=== PATIENT | female | born 1980 | race Caucasian/White ===

== ENCOUNTER 2019-01-11 18:33 | Emergency (ER) | payer BC ==
[~2019-01-11] VITALS: Ht 157.5 cm; Wt 93.3 kg
--- NOTE | 2019-01-11 18:41 | ED.ADGEN ---
Past History Past Medical History: Anemia, Asthma Past Medical History MRSA Adult General Chief Complaint Chief Complaint ".. I got this lesion under my Lt. arm..." HPI HPI Patient is a 38 year old female who presents with above hx and complaints of cellulitis and abscess under her left axillary area. Patient does shave her arms and uses antidepressant deodorants. She has approximately 1 x 2 cm abscess with surrounding cellulitis. Patient has had previous history of MRSA. History immunosuppression. Does have a history of asthma. No recent travel or specific ill contacts. Review of Systems Review of Systems Constitutional: Denies fever or chills [] Eyes: Denies change in visual acuity, redness, or eye pain [] HENT: Denies nasal congestion or sore throat [] Respiratory: Denies cough or shortness of breath [] Cardiovascular: No additional information not addressed in HPI [] GI: Denies abdominal pain, nausea, vomiting, bloody stools or diarrhea [] : Denies dysuria or hematuria [] Musculoskeletal: Denies back pain or joint pain [] Integument: Denies rash or skin lesions []plains of cellulitis, abscess and adenopathy axillary Lt. Neurologic: Denies headache, focal weakness or sensory changes [] Endocrine: Denies polyuria or polydipsia [] All other systems were reviewed and found to be within normal limits, except as documented in this note. Family History Family History Noncontributory Current Medications Current Medications Current Medications Medications (Trade) Dose Ordered Sig/Chely Start Time Stop Time Status Last Admin Dose Admin Ceftriaxone Sodium (Rocephin Im) 1 gm 1X ONCE 01/11/19 20:15 01/11/19 20:26 DC 01/11/19 20:25 1 GM Ceftriaxone Sodium (Rocephin) 1 gm STK-MED ONCE 01/11/19 20:20 01/11/19 20:21 DC Hydrocodone Bitartrate/ Ibuprofen (Vicoprofen 7.5-200) 1 tab STK-MED ONCE 01/11/19 20:17 01/11/19 20:26 DC Trimethoprim/ Sulfamethoxazole (Bactrim Ds) 1 tab STK-MED ONCE 01/11/19 20:17 01/11/19 20:26 DC See nursing for home meds Allergies Allergies Allergies Coded Allergies Type Severity Reaction Last Updated Verified Tetracyclines Allergy Unknown 01/11/19 Yes latex Allergy Unknown 01/11/19 Yes Uncoded Allergies Type Severity Reaction Last Updated Verified rubbing alcohol Allergy Unknown Itching 01/11/19 Physical Exam Physical Exam Constitutional: Well developed, well nourished, in acute distress, non-toxic appearance. [] HENT: Normocephalic, atraumatic, bilateral external ears normal, oropharynx moist, no oral exudates, nose normal. [] Eyes: PERRLA, EOMI, conjunctiva normal, no discharge. [] Neck: Normal range of motion, no tenderness, supple, no stridor. [] Cardiovascular:Heart rate regular rhythm, no murmur [] Lungs & Thorax: Bilateral breath sounds clear to auscultation [] Abdomen: Bowel sounds normal, soft, no tenderness, no masses, no pulsatile masses. [Obese Skin: Warm, dry, no erythema, no rash. [] Cellulitis and abscess left axillary. Back: No tenderness, no CVA tenderness. [] Extremities: No tenderness, no cyanosis, no clubbing, ROM intact, no edema. [] Neurologic: Alert and oriented X 3, normal motor function, normal sensory function, no focal deficits noted. [] Psychologic: Affect anxious, judgement normal, mood normal. [] Current Patient Data Vital Signs Vital Signs Date Time Temp Pulse Resp B/P (MAP) Pulse Ox O2 Delivery O2 Flow Rate FiO2 01/11/19 18:43 98.5 86 18 100 Room Air Lab Results Laboratory Tests Test 01/11/19 19:40 01/11/19 19:50 Urine Collection Type Unknown Urine Color Yellow Urine Clarity Hazy Urine pH 5.0 Urine Specific [place] >=1.030 Urine Protein Neg (NEG-TRACE) Urine Glucose (UA) Neg mg/dL (NEG) Urine Ketones (Stick) Neg mg/dL (NEG) Urine Blood Mod (NEG) Urine Nitrite Neg (NEG) Urine Bilirubin Neg (NEG) Urine Urobilinogen Dipstick 0.2 mg/dL (0.2 mg/dL) Urine Leukocyte Esterase Neg (NEG) Urine RBC 3-5 /HPF (0-2) Urine WBC 1-4 /HPF (0-4) Urine Squamous Epithelial Cells Mod /LPF Urine Bacteria Few /HPF (0-FEW) Urine Mucus Slight /LPF POC Urine HCG, Qualitative hcg negative (Negative) EKG EKG [] Radiology/Procedures Radiology/Procedures [] Course & Med Decision Making Course & Med Decision Making Pertinent Labs and Imaging studies reviewed. (See chart for details) Procedure note: Incision and drainage- axillary area prepped with Betadine. One stick with 15 blade with removal of approximately 2 mL of pus. Dressing applied. Patient to keep area clean and dry. Patient apply Polysporin 4 times a day after warm soaks. Patient take Bactrim DS twice a day. Patient encouraged not to shave her arms or use drying deodorants. Patient return if any concerns. [] Final Impression Final Impression 1. Left axillary abscess cellulitis 2. History of prior MRSA[] Dragon Disclaimer Dragon Disclaimer This electronic medical record was generated, in whole or in part, using a voice recognition dictation system. Discharge Summary Visit Information Final Diagnosis Problems Medical Problems: (1) Abscess Status: Acute (2) Cellulitis Status: Acute Brief Hospital Course Allergies Allergies Coded Allergies Type Severity Reaction Last Updated Verified Tetracyclines Allergy Unknown 01/11/19 Yes latex Allergy Unknown 01/11/19 Yes Uncoded Allergies Type Severity Reaction Last Updated Verified rubbing alcohol Allergy Unknown Itching 01/11/19 Vital Signs Vital Signs Date Time Temp Pulse Resp B/P (MAP) Pulse Ox O2 Delivery O2 Flow Rate FiO2 01/11/19 18:43 98.5 86 18 100 Room Air Lab Results Laboratory Tests Test 01/11/19 19:40 01/11/19 19:50 Urine Collection Type Unknown Urine Color Yellow Urine Clarity Hazy Urine pH 5.0 Urine Specific [place] >=1.030 Urine Protein Neg (NEG-TRACE) Urine Glucose (UA) Neg mg/dL (NEG) Urine Ketones (Stick) Neg mg/dL (NEG) Urine Blood Mod (NEG) Urine Nitrite Neg (NEG) Urine Bilirubin Neg (NEG) Urine Urobilinogen Dipstick 0.2 mg/dL (0.2 mg/dL) Urine Leukocyte Esterase Neg (NEG) Urine RBC 3-5 /HPF (0-2) Urine WBC 1-4 /HPF (0-4) Urine Squamous Epithelial Cells Mod /LPF Urine Bacteria Few /HPF (0-FEW) Urine Mucus Slight /LPF Bedside Urine HCG, Qualitative hcg negative (Negative) Brief Hospital Course Ms. Rivers is a 38 old female who presented with Lt axillary abscess and cellulitis. Discharge Information Condition at Discharge: Improved, Stable Disposition/Orders: D/C to Home Dischare Medications Current Medications Ceftriaxone Sodium (Rocephin Im) 1 gm 1X ONCE IM Last administered on 01/11/19at 20:25; Admin Dose 1 GM; Start 01/11/19 at 20:15; Stop 01/11/19 at 20:26; Status DC Trimethoprim/ Sulfamethoxazole (Bactrim Ds) 1 tab 1X ONCE PO Last administered on 01/11/19at 20:25; Admin Dose 1 TAB; Start 01/11/19 at 20:15; Stop 01/11/19 at 20:26; Status DC Hydrocodone Bitartrate/ Ibuprofen (Vicoprofen 7.5-200) 2 tab 1X ONCE PO Last administered on 01/11/19at 20:25; Admin Dose 2 TAB; Start 01/11/19 at 20:15; Stop 01/11/19 at 20:26; Status DC Ceftriaxone Sodium (Rocephin) 1 gm STK-MED ONCE .ROUTE ; Start 01/11/19 at 20:17; Stop 01/11/19 at 20:18; Status DC Ceftriaxone Sodium (Rocephin) 1 gm STK-MED ONCE .ROUTE ; Start 01/11/19 at 20:20; Stop 01/11/19 at 20:21; Status DC Trimethoprim/ Sulfamethoxazole (Bactrim Ds) 1 tab STK-MED ONCE PO ; Start 01/11/19 at 20:17; Stop 01/11/19 at 20:26; Status DC Hydrocodone Bitartrate/ Ibuprofen (Vicoprofen 7.5-200) 1 tab STK-MED ONCE .ROUTE ; Start 01/11/19 at 20:17; Stop 01/11/19 at 20:26; Status DC Active Scripts Active Bactrim Ds Tablet (Sulfamethoxazole/Trimethoprim) 1 Each Tablet 1 Tab PO BID Hydrocodone-Ibuprofen 7.5-200 (Hydrocodone/Ibuprofen) 1 Each Tablet 1 Tab PO PRN Q6HRS PRN Dragon Disclaimer This chart was dictated in whole or in part using Voice Recognition software in a busy, high-work load, and often noisy Emergency Department environment. It may contain unintended and wholly unrecognized errors or omissions. VENTURA BAHENA MD Jan 11, 2019 18:41
[2019-01-11 18:43] VITALS: BP 141/103
[2019-01-11 20:11] LABS: BACTERIA,URINE FEW /HPF (0-FEW); BILIRUBIN,URINE NEG (NEG); CLARITY,URINE HAZY; COLOR,URINE YELLOW; GLUCOSE,URINE NEG (NEG); NITRITE,URINE NEG (NEG); SQUAMOUS EPITHELIAL CELL,UR MOD /LPF; UROBILINOGEN,URINE 0.2 mg/dL (0.2 mg/dL)
[2019-01-11] MEDS ORDERED: SMZ/TMP 800/160MG TABLET. PO ONE ×2 (20:15→20:17)
[2019-01-11] MEDS ORDERED: cefTRIAXone IM 1 GM VIAL IM ONE (20:15)
[2019-01-11] MEDS ORDERED: HYDROcodon/IBUPROFEN 7.5/200MG 1 TAB TABLET PO ONE (20:15)
[2019-01-11] MEDS ORDERED: cefTRIAXone SODIUM 1 GM VIAL ONE ×2 (20:17→20:20)
[2019-01-11] MEDS ORDERED: HYDROcodon/IBUPROFEN 7.5/200MG 1 TAB TABLET ONE (20:17)
[2019-01-11] MEDS ORDERED: SULF1TAB24 PO (20:17)
[2019-01-11] MEDS ORDERED: HYDR-1179 PO (20:17)
== END 2019-01-11 20:26 | disposition home or self-care (01) ==
LOC: ER 18:33
DX: L02.412 Cutaneous abscess of left axilla (principal); L03.112 Cellulitis of left axilla; J45.909 Unspecified asthma, uncomplicated; Z86.2 Personal history of diseases of the blood and blood-forming organs and certain disorders involving the immune mechanism; Z88.1 Allergy status to other antibiotic agents; Z91.040 Latex allergy status; Z86.14 Personal history of Methicillin resistant Staphylococcus aureus infection
CPT/HCPCS: 10060; 81001; 81025; 96372; 99283; J0696

== ENCOUNTER 2019-02-16 14:33 | Emergency (ER) | payer SELFPAY ==
[~2019-02-16] VITALS: Ht 157.5 cm; Wt 95.3 kg
[~2019-02-16 14:33] MED LIST: HYDR-1179 PO; SULF1TAB24 PO
[2019-02-16] MEDS ORDERED: LIDOCAINE 1% Multi-Dose 20 ML VIAL. IJ ONE (15:00)
--- NOTE | 2019-02-16 15:08 | PHYS DOC ---
Past History Past Medical History: Anemia, Asthma Past Surgical History: No Surgical History Alcohol Use: None Drug Use: None Adult General Chief Complaint Chief Complaint: ABSCESS HPI HPI Patient is a 38-year-old female presents complaining of a red painful swollen area like previous abscesses on her left torso at about the level of her bra line. Patient most recently was treated for one of these more cephalad approximately a month ago and was prescribed Bactrim which she completed. She has had no relief with home measures such as soap and water. Notes that has started draining today. Denies any fever. Reports that the drainage is of purulent material. Reports increased pain with palpation. No significant improvement with home pain medicines. She denies any travel or trauma.[] Review of Systems Review of Systems Constitutional: Denies fever or chills [] Eyes: Denies change in visual acuity, redness, or eye pain [] HENT: Denies nasal congestion or sore throat [] Respiratory: Denies cough or shortness of breath [] Cardiovascular: No additional information not addressed in HPI [] GI: Denies abdominal pain, nausea, vomiting, bloody stools or diarrhea [] : Denies dysuria or hematuria [] Musculoskeletal: Denies back pain or joint pain [] Integument: See history of present illness[] Neurologic: Denies headache, focal weakness or sensory changes [] Endocrine: Denies polyuria or polydipsia [] All other systems were reviewed and found to be within normal limits, except as documented in this note. Allergies Allergies Allergies Coded Allergies Type Severity Reaction Last Updated Verified Tetracyclines Allergy Unknown 01/11/19 Yes latex Allergy Unknown 01/11/19 Yes Uncoded Allergies Type Severity Reaction Last Updated Verified rubbing alcohol Allergy Unknown Itching 01/11/19 Physical Exam Physical Exam Constitutional: Well developed, well nourished, no acute distress, non-toxic appearance. [] HENT: Normocephalic, atraumatic, bilateral external ears normal, oropharynx moist, no oral exudates, nose normal. [] Eyes: PERRLA, EOMI, conjunctiva normal, no discharge. [] Neck: Normal range of motion, no tenderness, supple, no stridor. [] Cardiovascular:Heart rate regular rhythm, no murmur [] Lungs & Thorax: Bilateral breath sounds clear to auscultation [] Abdomen: Bowel sounds normal, soft, no tenderness, no masses, no pulsatile masses. [] Skin: Warm, dry, erythematous and fluctuant region left chest, midaxillary line, fourth to fifth intercostal space region. This is 5 cm x 3 cm, longest axis transverse, with minimal purulent drainage. [] Back: No tenderness, no CVA tenderness. [] Extremities: No tenderness, no cyanosis, no clubbing, ROM intact, no edema. [] Neurologic: Alert and oriented X 3, normal motor function, normal sensory function, no focal deficits noted. [] Psychologic: Affect normal, judgement normal, mood normal. [] EKG EKG [] Radiology/Procedures Radiology/Procedures [] Course & Med Decision Making Course & Med Decision Making Pertinent Labs and Imaging studies reviewed. (See chart for details) ED course: Patient arrived, was placed in bed, and tolerated exam well. The incision and drainage was performed after verbal consent with risks and benefits explained. She tolerated the procedure well. The area was dressed. She was discharged in improved condition with all questions answered. Medical decision making: Patient appears to have a cutaneous abscess and is approximately one month post most recent antibiotics, trimethoprim sulfamethoxazole, so will prescribe a different class of antibiotic. There is no evidence of sepsis.[] Dragon Disclaimer Dragon Disclaimer This electronic medical record was generated, in whole or in part, using a voice recognition dictation system. Departure Departure: Impression: Primary Impression: Cutaneous abscess of chest wall Disposition: HOME, SELF-CARE Condition: IMPROVED Referrals: PCP,NO (PCP) Patient Instructions: Abscess, Incision and Drainage, Care After Additional Instructions: Follow-up with your regular doctor in 2 days. If you do not have regular doctor list of local clinics will be provided. Keep the area clean and dry other than washing with soap and water several times a day. Return to the ER if worsening pain, fever of more than 101, or any other concerns. Scripts Hydrocodone Bit/Acetaminophen (NORCO 5-325 TABLET) 1 Each Tablet 1-2 TAB PO Q4-6HRS for severe pain, #20 TAB Prov: CONSTANTINO MONTENEGRO DO 02/16/19 Meloxicam (MELOXICAM) 7.5 Mg Tablet 7.5 MG PO DAILY for PAIN, #20 TAB Prov: CONSTANTINO MONTENEGRO DO 02/16/19 Clindamycin Hcl (CLINDAMYCIN HCL) 150 Mg Capsule 2 CAP PO QID for abscess with cellulitis, #80 CAP Prov: CONSTANTINO MONTENEGRO DO 02/16/19 Incision and Drainage Indication: Left thoracic abscess Procedure: The patient was positioned appropriately and the skin over the incision site was prepped with ChloraPrep. Local anesthesia was performed with 4 milliliters 1% lidocaine. An incision was then made over the area of greatest fluctuance] and moderate amount of purulent] material was expressed. Loculations were broken up. The patients tetanus status confirmed. The patient tolerated the procedure well]. Complications: None CONSTANTINO MONTENEGRO DO Feb 16, 2019 15:08
[2019-02-16 15:30] VITALS: BP 158/108
[2019-02-16] MEDS ORDERED: MELO7.5T29 PO (15:32)
[2019-02-16] MEDS ORDERED: CLIN150C14 PO (15:32)
[2019-02-16] MEDS ORDERED: HYDR-3165 PO (15:32)
== END 2019-02-16 15:39 | disposition home or self-care (01) ==
LOC: ER 14:33
DX: L02.213 Cutaneous abscess of chest wall (principal); J45.909 Unspecified asthma, uncomplicated; Z86.2 Personal history of diseases of the blood and blood-forming organs and certain disorders involving the immune mechanism; Z88.1 Allergy status to other antibiotic agents; Z91.040 Latex allergy status
CPT/HCPCS: 10060; 99283

== ENCOUNTER 2019-09-24 14:07 | Emergency (ER) | payer MEDICAID ==
[~2019-09-24] VITALS: Ht 157.5 cm; Wt 93.3 kg
[~2019-09-24 14:07] MED LIST changes: +CLIN150C14 PO; +HYDR-3165 PO; +MELO7.5T29 PO
[2019-09-24] MEDS ORDERED: IV NORMAL SALINE 1,000ML 1,000 ML IV ONE (14:30)
[2019-09-24] MEDS ORDERED: ONDANSETRON PF 4 MG/2 ML VIAL. IVP ONE (14:45)
--- NOTE | 2019-09-24 14:54 | PHYS DOC ---
Past History Past Medical History: Anemia, Asthma, Migraines Past Surgical History: No Surgical History Alcohol Use: None Drug Use: None Adult General Chief Complaint Chief Complaint: NAUSEA/VOMITING/DIARRHEA HPI HPI 39-year-old female presents with dizziness. The patient has been diagnosed in the past with vertigo. She is also seen a neurologist to believes that it is related to migraines versus vertigo. The patient is taking medications for this, but is not taking all of her usual medications because of her . She has not had dizziness with her in the past. Any significant movement of her head makes her feel like the room is spinning. She tried 2 meclizine tablets without relief. She has been a drinking normally. She denies fever or chills. She has had some abdominal cramping, but no obvious contractions or vaginal bleeding. She denies fever or chills. Review of Systems Review of Systems Constitutional: Denies fever or chills [] Eyes: Denies change in visual acuity, redness, or eye pain [] HENT: Denies nasal congestion or sore throat [] Respiratory: Denies cough or shortness of breath [] Cardiovascular: No additional information not addressed in HPI [] GI: Lower abdominal pain, nausea. Denies vomiting, bloody stools or diarrhea [] : Denies dysuria or hematuria [] Musculoskeletal: Denies back pain or joint pain [] Integument: Denies rash or skin lesions [] Neurologic: Dizziness. Denies headache, focal weakness or sensory changes [] Endocrine: Denies polyuria or polydipsia [] All other systems were reviewed and found to be within normal limits, except as documented in this note. Current Medications Current Medications Current Medications Medications (Trade) Dose Ordered Sig/Chely Start Time Stop Time Status Last Admin Dose Admin Ondansetron HCl (Zofran) 4 mg 1X ONCE 09/24/19 14:45 09/24/19 14:46 DC Sodium Chloride 1,000 ml @ 1,000 mls/hr 1X ONCE 09/24/19 14:30 09/24/19 15:29 Allergies Allergies Allergies Coded Allergies Type Severity Reaction Last Updated Verified Tetracyclines Allergy Unknown 01/11/19 Yes latex Allergy Unknown 01/11/19 Yes Uncoded Allergies Type Severity Reaction Last Updated Verified rubbing alcohol Allergy Unknown Itching 01/11/19 Physical Exam Physical Exam Constitutional: Well developed, well nourished, no acute distress, non-toxic appearance. [] HENT: Normocephalic, atraumatic, bilateral external ears normal, oropharynx moist, no oral exudates, nose normal. [] Eyes: PERRLA, EOMI, conjunctiva normal, no discharge. [] Neck: Normal range of motion, no tenderness, supple, no stridor. [] Cardiovascular:Heart rate regular rhythm, no murmur [] Lungs & Thorax: Bilateral breath sounds clear to auscultation [] Abdomen: Bowel sounds normal, gravid uterus.[] Skin: Warm, dry, no erythema, no rash. [] Back: No tenderness, no CVA tenderness. [] Extremities: No tenderness, no cyanosis, no clubbing, ROM intact, no edema. [] Neurologic: Alert and oriented X 3, normal motor function, normal sensory function, no focal deficits noted. [] Psychologic: Affect normal, judgement normal, mood anxious [] EKG EKG [] Radiology/Procedures Radiology/Procedures [] Impressions: Study: PREG MORE THAN OR EQ TO 14 WKS Clinical Indication: Lower abdominal cramping. Comparison: None. Technique: Multiple grayscale images, color Doppler, and M-mode images of the uterus are obtained. Findings: There is a single intrauterine gestation in variable/breech presentation. The placenta is anterior in location and placenta grade 1. The amount of amniotic fluid appears appropriate. Amniotic fluid index is 14 cm. Cervical length is 4.4 cm. Biometrical data: BPD = 7.03 cm for 28 weeks 2 days. HC = 27.23 cm for 29 weeks 5 days. AC = 25.02 cm for 29 weeks 2 days. FL = 5.68 cm for 29 weeks 6 days. CI ratio = 72.6. HC/AC ratio = 1.09. FL/HC ratio = 20.9. FL/AC ratio = 22.7. Overall, the estimated sonographic gestational age is 29 weeks 2 days. The estimated gestational age by the last menstrual period is 23 weeks 6 days. Estimated weight is 1386 grams. The estimated heart rate is 150 beats per minute. movement detected. The study is not performed for a full evaluation of anatomy. Impression: 1. Single live intrauterine gestation with estimated sonographic gestational age of 29 weeks 2 days. Based on provided last menstrual period, estimated gestational age of 23 weeks 6 days. Recommend correlation with patient history to account for this discrepancy. Anterior placenta. Variable presentation intermittently in breech. Within normal limits amniotic fluid index. 2. No complicating features are identified noting that the study is not performed for full evaluation of anatomy. Ongoing routine follow-up is recommended. Electronically signed by: RAÚL MESA MD (09/24/2019 3:23 PM) [facility] [facility] [place]ATED AND SIGNED BY: RAÚL MESA MD DATE: 09/24/19 1523 CC: JENNY ATWOOD DO; PCP,UNKNOWN ~ Course & Med Decision Making Course & Med Decision Making Pertinent Labs and Imaging studies reviewed. (See chart for details) Patient's ultrasound shows single live intrauterine . No immediate concerns with the ultrasound. See official report more details. The patient has been given a liter normal saline. Her labs are unremarkable. Her urinalysis is suggestive of UTI. I will treat her with Keflex for 5 days. This may be contributing to her dizziness. This could also just be an exacerbation of her previously diagnosed vertigo. She is stable for discharge at this time. [] Dragon Disclaimer Dragon Disclaimer This electronic medical record was generated, in whole or in part, using a voice recognition dictation system. Departure Departure: Impression: Primary Impression: UTI in Additional Impression: Dizziness Disposition: 01 HOME, SELF-CARE Condition: STABLE Referrals: PCP,UNKNOWN (PCP) Patient Instructions: Dizziness, [id number], - Third Trimester, [id number], - Urinary Tract Infection Problem Qualifiers Primary Impression: UTI in Trimester: third trimester Qualified Codes: O23.43 - Unspecified infection of urinary tract in , third trimester JENNY ATWOOD DO Sep 24, 2019 14:54
[2019-09-24 15:04] LABS: BASO % 0 % (0-3); EOS # 0.1 x10^3/uL (0.0-0.7); EOS % 1 % (0-3); HEMATOCRIT 41.1 % (36.0-47.0); LYMPH # 1.3 x10^3/uL (1.0-4.8); LYMPH % 14 % (24-48); MEAN CORPUSCULAR HEMOGLOBIN 32 pg (25-35); MEAN CORPUSCULAR HGB CONC 34 g/dL (31-37); MEAN CORPUSCULAR VOLUME 95 fL (79-100); MONO # 0.8 x10^3/uL (0.0-1.1); MONO % 9 % (0-9); NEUT # 7.1 x10^3uL (1.8-7.7); NEUT % 76 % (31-73); PLATELET COUNT 238 x10^3/uL (140-400); RED BLOOD COUNT 4.31 x10^6/uL (3.50-5.40); RED CELL DISTRIBUTION WIDTH 14.1 % (11.5-14.5); WHITE BLOOD COUNT 9.3 x10^3/uL (4.0-11.0)
[2019-09-24 15:11] LABS: CALCIUM 9.1 mg/dL (8.5-10.1); CREATININE 0.5 mg/dL (0.6-1.0); GFR 137.4; POTASSIUM 3.7 mmol/L (3.5-5.1)
[2019-09-24 15:15] LABS: BACTERIA,URINE FEW /HPF (0-FEW); BILIRUBIN,URINE NEG (NEG); CLARITY,URINE HAZY; COLOR,URINE YELLOW; GLUCOSE,URINE NEG (NEG); NITRITE,URINE NEG (NEG); SQUAMOUS EPITHELIAL CELL,UR FEW /LPF; UROBILINOGEN,URINE 0.2 mg/dL (0.2 mg/dL)
[2019-09-24 15:18] LABS: ALBUMIN/GLOBULIN RATIO 0.9 (1.0-1.7); TOTAL BILIRUBIN 0.5 mg/dL (0.2-1.0); TOTAL PROTEIN 6.5 g/dL (6.4-8.2)
--- NOTE | 2019-09-24 15:27 | RAD ---
Study: PREG MORE THAN OR EQ TO 14 WKS Clinical Indication: Lower abdominal cramping. Comparison: None. Technique: Multiple grayscale images, color Doppler, and M-mode images of the uterus are obtained. Findings: There is a single intrauterine gestation in variable/breech presentation. The placenta is anterior in location and placenta grade 1. The amount of amniotic fluid appears appropriate. Amniotic fluid index is 14 cm. Cervical length is 4.4 cm. Biometrical data: BPD = 7.03 cm for 28 weeks 2 days. HC = 27.23 cm for 29 weeks 5 days. AC = 25.02 cm for 29 weeks 2 days. FL = 5.68 cm for 29 weeks 6 days. CI ratio = 72.6. HC/AC ratio = 1.09. FL/HC ratio = 20.9. FL/AC ratio = 22.7. Overall, the estimated sonographic gestational age is 29 weeks 2 days. The estimated gestational age by the last menstrual period is 23 weeks 6 days. Estimated weight is 1386 grams. The estimated heart rate is 150 beats per minute. movement detected. The study is not performed for a full evaluation of anatomy. Impression: 1. Single live intrauterine gestation with estimated sonographic gestational age of 29 weeks 2 days. Based on provided last menstrual period, estimated gestational age of 23 weeks 6 days. Recommend correlation with patient history to account for this discrepancy. Anterior placenta. Variable presentation intermittently in breech. Within normal limits amniotic fluid index. 2. No complicating features are identified noting that the study is not performed for full evaluation of anatomy. Ongoing routine follow-up is recommended. Electronically signed by: RAÚL MESA MD (09/24/2019 3:23 PM) [facility] [place]
[2019-09-24] MEDS ORDERED: CEPH-264 PO (16:10)
[2019-09-24] MEDS ORDERED: ONDA4TAB12 PO (16:13)
[2019-09-24 16:28] VITALS: BP 123/75
== END 2019-09-24 16:31 | disposition home or self-care (01) ==
LOC: ER 14:07
DX: O23.43 Unspecified infection of urinary tract in pregnancy, third trimester (principal); R42 Dizziness and giddiness; O99.513 Diseases of the respiratory system complicating pregnancy, third trimester; J45.909 Unspecified asthma, uncomplicated; O99.013 Anemia complicating pregnancy, third trimester; G43.909 Migraine, unspecified, not intractable, without status migrainosus; Z3A.29 29 weeks gestation of pregnancy; Z88.1 Allergy status to other antibiotic agents; Z91.040 Latex allergy status
CPT/HCPCS: 36415; 76805; 80053; 81001; 85025; 87086; 96361; 96374; 99285; J2405; J7030